=== PATIENT | female | born 1980 | race Caucasian/White ===

== ENCOUNTER 2023-04-19 19:42 | Emergency (ER) | payer SELFPAY ==
[2023-04-19 19:44] VITALS: BP 115/81; PULSE 80; RESP 16; TEMP 37.2; O2SAT 96; BMI 21.6
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
[2023-04-19] MEDS: morphine 4 mg/mL SDV 1 mL IVP (21:15)
[2023-04-19] MEDS: HYDROcodone-acetaminophen 5-325 mg Tablet 2 TAB PO (21:19)
[2023-04-19 21:36] VITALS: BP 115/81; PULSE 80; RESP 16; TEMP 37.2; O2SAT 96
== END 2023-04-19 21:37 | disposition home or self-care (01) ==
PROVIDERS: Emergency Provider Emergency Medicine
DX: S20.219A Contusion of unspecified front wall of thorax, initial encounter (principal); V89.2XXA Person injured in unspecified motor-vehicle accident, traffic, initial encounter
CPT/HCPCS: 71250; 72125; 96374; 99284; J2270